=== PATIENT | male | born 1930 | race Caucasian/White ===

== ENCOUNTER 2018-08-13 20:14 | Observation (INO) | payer OTHER ==
--- OUTSIDE RECORDS SUMMARY | 2018-08-13 20:16 | XMS REPORT | Clinical Summary ---
:1930 Author Organization [facility] Address [address] [place] [address] Care Team Providers Name Role Phone Melissa Primary Care Provider Allergies No Known Allergies Medications Not on file Active Problems Not on file Social History Tobacco Use Types Packs/Day Years Used Date Never Assessed Sex Assigned at Date Recorded Not on file Job Start Date Occupation Industry Not on file Not on file Not on file Travel History Travel Start Travel End No recent travel history available. Last Filed Vital Signs Not on file Plan of Treatment Not on file Results Not on fileafter 08/12/2017 Insurance Payer Benefit Plan / Subscriber ID Type Phone Address Group AETNA - MEDICARE AETNA MEDICARE O xxxxxxxx [phone] [address] [place] [address] y (Home) [place] [address]
--- OUTSIDE RECORDS SUMMARY | 2018-08-13 20:17 | XMS REPORT ---
:1930 Author Organization [facility] Address [address] [place] [address] [address] [place] [address] Care Team Providers Name Role Phone BILL ZAIDI Unavailable Unavailable Problems This patient has no known problems. Allergies, Adverse Reactions, Alerts This patient has no known allergies or adverse reactions. Medications This patient has no known medications. Results Test Description Test Time Test Comments Text Results Atomic Results Result Comments URINALYSIS W/ REFLEX URINE CULTURE 2017-06-17 15:25:00 Test Item Value Reference Range Comments COLOR (BEAKER) (test bcch=209) Light Yellow CLARITY (BEAKER) (test mqdh=996) Clear SPECIFIC GRAVITY UA (BEAKER) (test yoyc=703) 1.004 1.001-1.035 PH UA (BEAKER) (test rpwe=243) 7.0 5.0-8.0 PROTEIN UA (BEAKER) (test qeag=431) Negative Negative GLUCOSE UA (BEAKER) (test pwxr=663) Negative Negative KETONES UA (BEAKER) (test ukak=914) Negative Negative BILIRUBIN UA (BEAKER) (test mxez=359) Negative Negative BLOOD UA (BEAKER) (test zsum=805) Moderate Negative NITRITE UA (BEAKER) (test iaay=243) Negative Negative LEUKOCYTE ESTERASE UA (BEAKER) (test mglw=711) Large Negative UROBILINOGEN UA (BEAKER) (test nvxm=300) 0.2 mg/dL 0.2-1.0 RBC UA (BEAKER) (test sshb=929) 16 /HPF WBC UA (BEAKER) (test ltbd=675) 30 /HPF MUCUS (BEAKER) (test golg=9543) Rare SOURCE(BEAKER) (test wqfg=8654)
--- NOTE | 2018-08-13 21:52 | RAD REPORT ---
EXAM DESCRIPTION: RAD - Pelvis - 08/13/2018 9:41 pm CLINICAL HISTORY: fall Trauma, fall, right hip pain COMPARISON: None FINDINGS: AP pelvis and right hip-multiple projections are submitted. Right total hip arthroplasty is noted. Large amount of soft tissue swelling is seen about the right h ip. An acute fracture is not identified.
--- NOTE | 2018-08-13 23:06 | ER ---
Nurse's Notes [facility] Name: Jeremy Joshi Age: 88 yrs Sex: Male : 1930 Arrival Date: 08/13/2018 Time: 20:16 Bed 20 Private MD: Aime Lou C Diagnosis: Large hematoma right hip. S/P Fall Presentation: 08/13 20:17 Presenting complaint: Patient states: About 2 hours ago I tripped down a curb and la1 landed on my right hip, I have had it replaced in the past and it is very swollen and painful. Transition of care: patient was not received from another setting of care. Onset of symptoms was August 13, 2018. Risk Assessment: Do you want to hurt yourself or someone else? Patient reports no desire to harm self or others. Initial Sepsis Screen: Does the patient meet any 2 criteria? No. Patient's initial sepsis screen is negative. Does the patient have a suspected source of infection? No. Patient's initial sepsis screen is negative. Care prior to arrival: None. 20:17 Method Of Arrival: Wheelchair la1 20:17 Acuity: RICHARD 3 la1 20:17 Mechanism of Injury: Fall. 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 - Social history:: Smoking status: Patient/guardian denies using tobacco. - Ebola Screening: : No symptoms or risks identified at this time. Screenin:20 Abuse screen: Denies threats or abuse. Denies injuries from another. Nutritional rr5 screening: No deficits noted. Tuberculosis screening: No symptoms or risk factors identified. 21:20 Fall Risk Fall in past 12 months (25 points). Secondary diagnosis (15 points) impaired rr5 mobility, IV access (20 points). Total Ayers Fall Scale indicates High Risk Score (45 or more points). Fall prevention measures have been instituted. Side Rails Up X 2 Frequent Obs/Assessments Occuring Family Present and informed to notify staff if the need to leave the bedside As available patient and family educated on Fall Prevention Program and Strategies. Primary Survey: 20:20 NO uncontrolled hemorrhage observed. A: The patient is alert. Airway:. rr5 20:20 Breathing/Chest: Respiratory pattern: regular, Respiratory effort: spontaneous, rr5 unlabored. Circulation: Heart tones present. Pulses: palpable right popliteal artery, right posterior tibial artery and right dorsalis pedis artery. Disability Alert. Exposure/Environment: All clothing and personal items were removed. Forensic evidence collection is not deemed to be indicated at this time. Items placed in patient belonging bag. 21:00 Reassessment Airway Airway Patent Breathing/Chest Respiratory pattern Regular rr5 Respiratory effort Spontaneous Unlabored Circulation Pulses Palpable Color [facility] Disability Alert. 21:00 Reassessment Airway Airway Patent Breathing/Chest Respiratory pattern Regular rr5 Respiratory effort Spontaneous Unlabored Circulation Pulses Palpable Color [facility] Disability Alert. Secondary Survey: 20:20 HEENT: No deficits noted. Gastrointestinal: No deficits noted. : No deficits noted. rr5 Musculoskeletal: Swelling present in right hip. Assessment: 20:17 General: Appears in no apparent distress. uncomfortable, Behavior is calm, cooperative, rr5 appropriate for age. 20:17 Pain: Complains of pain in right hip Pain does not radiate. Pain currently is 4 out of rr5 10 on a pain scale. Quality of pain is described as aching, Pain began suddenly, Is intermittent. Neuro: Level of Consciousness is awake, alert, obeys commands, Oriented to person, place, time, situation. Cardiovascular: Capillary refill < 3 seconds Patient's skin is warm and dry. Respiratory: Airway is patent Respiratory effort is even, unlabored, Respiratory pattern is regular, symmetrical. GI: Abdomen is round. : No signs and/or symptoms were reported regarding the genitourinary system. EENT: No signs and/or symptoms were reported regarding the EENT system. Derm: Bruising that is dark purple, on right arm and left arm. Musculoskeletal: Swelling present in right hip. 21:30 Reassessment: Patient appears in no apparent distress at this time. Patient and/or rr5 family updated on plan of care and expected duration. Pain level reassessed. Patient states symptoms have improved. 22:45 Reassessment: Patient appears in no apparent distress at this time. Patient and/or rr5 family updated on plan of care and expected duration. Pain level reassessed. blood extracted. no complaints made. dr. sherman explained the plan of admission. 23:05 Reassessment: dr. ng came, assess and examined the patient. rr5 08/14 00:05 Reassessment: Patient appears in no apparent distress at this time. 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 Patient states symptoms have improved. Vital Signs: 08/13 20:19 BP 139 / 66; Pulse 74; Resp 16; Temp 97.5; Pulse Ox 98% on R/A; Weight 88.9 kg; Height la1 5 ft. 8 in. (172.72 cm); Pain 5/10; 21:00 BP 135 / 65; Pulse 70; Resp 17; Pulse Ox 99% ; rr5 22:00 BP 141 / 71; Pulse 79; Resp 18; Pulse Ox 99% ; rr5 23:00 BP 132 / 62; Pulse 79; Resp 17; Pulse Ox 98% ; rr5 08/14 00:00 BP 137 / 60; Pulse 77; Resp 17; Temp 97.6; Pulse Ox 98% on R/A; rr5 08/13 20:19 Body Mass Index 29.80 (88.90 kg, 172.72 cm) la1 Claudia Coma Score: 08/13 20:20 Eye Response: spontaneous(4). Verbal Response: oriented(5). Motor Response: obeys rr5 commands(6). Total: 15. Trauma Score (Adult): 20:20 Eye Response: spontaneous(1); Verbal Response: oriented(1); Motor Response: obeys rr5 commands(2); Systolic BP: > 89 mm Hg(4); Respiratory Rate: 10 to 29 per min(4); Claudia Score: 15; Trauma Score: 12 ED Course: 20:16 Patient arrived in ED. mr 20:16 Aime Lou MD is Private Physician. mr 20:18 Triage completed. la1 20:19 Arm band placed on right wrist. la1 20:20 Pulse ox on. NIBP on. rr5 20:20 Patient has correct armband on for positive identification. Placed in gown. Bed in low rr5 position. Call light in reach. Side rails up X2. 21:03 Daryn Sherman MD is Attending Physician. pkl 21:27 Raghav Tolentino, RN is Primary Nurse. rr5 21:41 Hip Right 2 View XRAY In Process Unspecified. EDMS 21:41 Pelvis XRAY In Process Unspecified. EDMS 22:00 Patient maintains SpO2 saturation greater than 95% on room air. rr5 22:30 No provider procedures requiring assistance completed. rr5 23:04 Stepan Rogers MD is Hospitalizing Provider. pkl 23:23 CBC with Automated Diff Sent. rr5 23:23 Inserted saline lock: 20 gauge in right forearm, using aseptic technique. Blood rr5 collected. 08/14 00:11 Patient admitted, IV remains in place. intact. rr5 Administered Medications: No medications were administered Output: 08/13 23:30 Urine: 400ml (Voided); Total: 400ml. rr5 Outcome: 23:05 Decision to Hospitalize by Provider. pkl 23:05 Patient's length of stay in the Emergency Department was greater than 2 hours. for rr5 admission. waiting for attending physician approval.Patient's length of stay extended due to 08/14 00:10 Admitted to Tele accompanied by tech, via stretcher, with chart, Report called to rr5 ermelinda Condition: stable Instructed on the need for admit. 00:59 Patient left the ED. rr5 Signatures: Dispatcher [employer] EDDaryn Law MD MD pkl Rivera, Mary mr Franc George, RN RN la1 Raghav Tolentino, RN RN rr5
--- NOTE | 2018-08-13 23:06 | EDPHYS ---
Physician Documentation [facility] Name: Jeremy Joshi Age: 88 yrs Sex: Male : 1930 Arrival Date: 08/13/2018 Time: 20:16 Bed 20 Private MD: Aime Lou C ED Physician Daryn Romeo HPI: 08/13 21:12 This 88 yrs old Male presents to ER via Wheelchair with complaints of Fall pkl Injury. 21:12 The patient or guardian reports deformity, an injury, pain, swelling. sustained from a pkl fall, from a standing position, tripped off a curb. The complaints affect the right hip. Onset: The symptoms/episode began/occurred just prior to arrival, 2 hour(s) ago. Associated signs and symptoms: Loss of consciousness: the patient experienced no loss of consciousness. 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 - Social history:: Smoking status: Patient/guardian denies using tobacco. - Ebola Screening: : No symptoms or risks identified at this time. ROS: 21:12 Eyes: Negative for injury, pain, redness, and discharge, ENT: Negative for injury, pkl pain, and discharge, Neck: Negative for injury, pain, and swelling, Cardiovascular: Negative for chest pain, palpitations, and edema, Respiratory: Negative for shortness of breath, cough, wheezing, and pleuritic chest pain, Abdomen/GI: Negative for abdominal pain, nausea, vomiting, diarrhea, and constipation, Back: Negative for injury and pain, : Negative for injury, bleeding, discharge, and swelling. 21:12 MS/extremity: Positive for injury or acute deformity, pain, swelling, tenderness, of the right hip. 21:12 Skin: Negative for rash. 21:12 Neuro: Negative for altered mental status, loss of consciousness. Exam: 21:12 Head/Face: Normocephalic, atraumatic. Eyes: Pupils equal round and reactive to light, pkl extra-ocular motions intact. Lids and lashes normal. Conjunctiva and sclera are non-icteric and not injected. Cornea within normal limits. Periorbital areas with no swelling, redness, or edema. ENT: Nares patent. No nasal discharge, no septal abnormalities noted. Tympanic membranes are normal and external auditory canals are clear. Oropharynx with no redness, swelling, or masses, exudates, or evidence of obstruction, uvula midline. Mucous membranes moist. Neck: Trachea midline, no thyromegaly or masses palpated, and no cervical lymphadenopathy. Supple, full range of motion without nuchal rigidity, or vertebral point tenderness. No Meningismus. Chest/axilla: Normal chest wall appearance and motion. Nontender with no deformity. No lesions are appreciated. Cardiovascular: Regular rate and rhythm with a normal S1 and S2. No gallops, murmurs, or rubs. Normal PMI, no JVD. No pulse deficits. Respiratory: Lungs have equal breath sounds bilaterally, clear to auscultation and percussion. No rales, rhonchi or wheezes noted. No increased work of breathing, no retractions or nasal flaring. Abdomen/GI: Soft, non-tender, with normal bowel sounds. No distension or tympany. No guarding or rebound. No evidence of tenderness throughout. Back: No spinal tenderness. No costovertebral tenderness. Full range of motion. Skin: Warm, dry with normal turgor. Normal color with no rashes, no lesions, and no evidence of cellulitis. Neuro: Awake and alert, GCS 15, oriented to person, place, time, and situation. Cranial nerves II-XII grossly intact. Motor strength 5/5 in all extremities. Sensory grossly intact. Cerebellar exam normal. Normal gait. 21:12 Musculoskeletal/extremity: Extremities: grossly normal except: noted in the right hip: pain, swelling, tenderness. Vital Signs: 20:19 BP 139 / 66; Pulse 74; Resp 16; Temp 97.5; Pulse Ox 98% on R/A; Weight 88.9 kg; Height la1 5 ft. 8 in. (172.72 cm); Pain 5/10; 21:00 BP 135 / 65; Pulse 70; Resp 17; Pulse Ox 99% ; rr5 22:00 BP 141 / 71; Pulse 79; Resp 18; Pulse Ox 99% ; rr5 23:00 BP 132 / 62; Pulse 79; Resp 17; Pulse Ox 98% ; rr5 08/14 00:00 BP 137 / 60; Pulse 77; Resp 17; Temp 97.6; Pulse Ox 98% on R/A; rr5 08/13 20:19 Body Mass Index 29.80 (88.90 kg, 172.72 cm) la1 Gipsy Coma Score: 08/13 20:20 Eye Response: spontaneous(4). Verbal Response: oriented(5). Motor Response: obeys rr5 commands(6). Total: 15. Trauma Score (Adult): 20:20 Eye Response: spontaneous(1); Verbal Response: oriented(1); Motor Response: obeys rr5 commands(2); Systolic BP: > 89 mm Hg(4); Respiratory Rate: 10 to 29 per min(4); Gipsy Score: 15; Trauma Score: 12 MDM: 21:03 Patient medically screened. pkl 23:04 Data reviewed: vital signs, nurses notes, lab test result(s), radiologic studies, plain pkl films. 08/13 22:45 Order name: CBC with Automated Diff; Complete Time: 02:27 EDHI 08/13 21:10 Order name: Hip Right 2 View XRAY pkl 08/13 21:10 Order name: Pelvis XRAY; Complete Time: 22:50 pkl Administered Medications: No medications were administered Disposition: 08/13/18 23:05 Hospitalization ordered by Stepan Rogers for Observation. Preliminary diagnosis is Large hematoma right hip. S/P Fall. - Bed requested for Telemetry/MedSurg (observation). - Status is Observation. rr5 - Condition is Stable. - Problem is new. - Symptoms are unchanged. UTI on Admission? No Signatures: Dispatcher [employer] EDHI Daryn Romeo MD MD pkl Franc George RN RN la1 Thalia Davila RN RN Raghav Tolentino RN RN rr5 Corrections: (The following items were deleted from the chart) 23:51 23:05 Hospitalization Ordered by Stepan Rogers MD for Observation. Preliminary cg diagnosis is Large hematoma right hip. S/P Fall. Bed requested for Telemetry/MedSurg (observation). Status is Observation. Condition is Stable. Problem is new. Symptoms are unchanged. UTI on Admission? No. pkl 08/14 00:59 08/13 23:51 08/13/2018 23:05 Hospitalization Ordered by Stepan Rogers MD for rr5 Observation. Preliminary diagnosis is Large hematoma right hip. S/P Fall. Bed requested for Telemetry/MedSurg (observation). Status is Observation. Condition is Stable. Problem is new. Symptoms are unchanged. UTI on Admission? No. cg
[2018-08-13 23:29] LABS: Absolute Lymphocytes (CBC) 1.6 K/uL (0.7-4.9); Absolute Neutrophil 6.5 K/uL (1.8-8.0); Basophils % 0.3 % (0-1.3); Eosinophils % 1.6 % (0-4.4); Hematocrit 36.6 % (39.6-49.0); Lymphocytes % 16.9 % (15.3-44.8); Monocytes % 11.2 % (3.3-12.3); RBC Red Blood Cell Count 3.83 M/uL (4.33-5.43)
--- NOTE | 2018-08-14 00:02 | P.HP ---
Certification for Inpatient Patient admitted to: Observation With expected LOS: <2 Midnights Practitioner: I am a practitioner with admitting privileges, knowledge of patient current condition, hospital course, and medical plan of care. Services: Services provided to patient in accordance with Admission requirements found in Title 42 Section 412.3 of the Code of Federal Regulations Patient History Date of Service: 08/13/18 Reason for admission: right hip hematoma History of Present Illness: Mr Joshi is an 88 years old male with history of CAD, right hip replacement, who fell this afternoon, over his right hip. immediately, he start feeling pain , and noticed progressive swelling in the area. He is taking baby aspirin but not anticoagulants. In ER XR was remarkable for large amount of soft tissue swelling, no fractures or dislocation. Hgb 12.3. He has significant swelling area on his right hip. The patient denied numbness or tingling in his distal lower extremity. Allergies No Known Aller Allergy (Uncoded 04/26/17 17:32) Unknown Home medications list reviewed: Yes - Past Medical/Surgical History -: CAD -: asbestosis -: osteoporosis -: Right hip arthroscopy -: CABG -: appex - Family History Family History: Reviewed- Non-Contributory - Social History Alcohol use: No CD- Drugs: No Place of Residence: Home Review of Systems 10-point ROS is otherwise unremarkable Physical Examination - Physical Exam General: Alert, In no apparent distress HEENT: Atraumatic, PERRLA, Mucous membr. moist/pink, EOMI, Sclerae nonicteric Neck: Supple, 2+ carotid pulse no bruit, No LAD, Without JVD or thyroid abnormality Respiratory: Clear to auscultation bilaterally, Normal air movement Cardiovascular: Regular rate/rhythm, Normal S1 S2 Gastrointestinal: Normal bowel sounds, No tenderness Musculoskeletal: Swelling (right hip), Tenderness (right hip) Integumentary: No rashes Neurological: Normal speech, Normal strength at 5/5 x4 extr, Normal tone, Normal affect Lymphatics: No axilla or inguinal lymphadenopathy - Studies Laboratory Data (last 24 hrs) 08/13/18 23:00: WBC 9.3, Hgb 12.3 L, Hct 36.6 L, Plt Count 170 Assessment and Plan - Problems (Diagnosis) (1) Hip hematoma, right Current Visit: Yes Status: Acute Qualifiers: Encounter type: initial encounter Qualified Code(s): S70.01XA - Contusion of right hip, initial encounter (2) CAD (coronary artery disease) Current Visit: Yes Status: Acute Qualifiers: Coronary Disease-Associated Artery/Lesion type: bypass graft [place] vs. transplanted heart: [place] heart Associated angina: without angina Qualified Code(s): I25.810 - Atherosclerosis of coronary artery bypass graft(s) without angina pectoris - Plan The patient will be admitted to the hospital under observation to evaluate progress of hematoma size. Will check HH regularly, consult Dr Sanchez for evaluation and recommendations. - Advance Directives Does patient have a Living Will: No Does patient have a Durable POA for Healthcare: No - Code Status/Comfort Care Code Status Assessed: Yes Code Status: Full Code
[2018-08-14] MEDS ORDERED: ONDANSETRON 4 MG/2 ML VIAL IV PRN (00:51)
[2018-08-14] MEDS ORDERED: TRAMADOL HCL 50 MG TAB PO PRN (00:51)
[2018-08-14] MEDS ORDERED: NA CHLORIDE 0.9% 1,000 ML IV SCH (00:51)
[2018-08-14] MEDS ORDERED: ALBUTEROL 2.5 MG/3 ML NEB SOL ONE (01:11)
[2018-08-14] MEDS ORDERED: FAMOTIDINE 20 MG TAB ONE (01:12)
[2018-08-14] MEDS ORDERED: predniSONE 20 MG TAB ONE (01:12)
[2018-08-14 03:58] LABS: Absolute Lymphocytes (CBC) 1.6 K/uL (0.7-4.9); Absolute Monocytes 0.8 K/uL (0.1-1.3); Absolute Neutrophil 3.8 K/uL (1.8-8.0); Basophils % 0.6 % (0-1.3); Eosinophils % 2.2 % (0-4.4); Hematocrit 33.2 % (39.6-49.0); Lymphocytes % 24.8 % (15.3-44.8); Monocytes % 13.2 % (3.3-12.3); RBC Red Blood Cell Count 3.48 M/uL (4.33-5.43)
[2018-08-14 04:15] LABS: BUN Blood Urea Nitrogen 17 mg/dL (7-18); Bicarbonate 32 mmol/L (21-32); Glucose Level 108 mg/dL (74-106); Potassium 4.2 mmol/L (3.5-5.1); Sodium Level 138 mmol/L (136-145)
[2018-08-14 04:39] LABS: Urine Appearance CLEAR; Urine Bilirubin NEGATIVE (NEG); Urine Blood NEGATIVE (NEG); Urine Color YELLOW; Urine Glucose NEGATIVE (NEG); Urine Protein NEGATIVE (NEG); Urine Specific Gravity 1.015 (1.005-1.030); Urine Urobilinogen 0.2 mg/dL (0.2-1.0)
[2018-08-14 04:58] LABS: Urine Microscopic Reflex ORDER UMIC
[2018-08-14 05:05] LABS: Urine Bacteria LOADED /HPF (NONE SEEN); Urine Culture Reflex Order REFLEXED; Urine RBC NONE SEEN /HPF (NONE SEEN)
[2018-08-14] MEDS ORDERED: PNEUMOCOCCAL VACCINE 0.5 ML IMVAC ONE (08:00)
[2018-08-14] MEDS ORDERED: INFLUENZA VACCINE (for 3y+) 0.5 ML DOSE IMVAC ONE (08:00)
[2018-08-14] MEDS ORDERED: HOME MED 1 EA UNK (Linaclotide [Linzess] 1 CAP) PO PRN (10:08)
--- NOTE | 2018-08-14 14:15 | P.SSS ---
Patient History Date of Service: 08/14/18 Reason for admission: right hip hematoma History of Present Illness: Mr Joshi is an 88 years old male with history of CAD, right hip replacement, who fell this afternoon, over his right hip. immediately, he start feeling pain , and noticed progressive swelling in the area. He is taking baby aspirin but not anticoagulants. In ER XR was remarkable for large amount of soft tissue swelling, no fractures or dislocation. Hgb 12.3. He has significant swelling area on his right hip. The patient denied numbness or tingling in his distal lower extremity. Allergies No Known Drug Allergies Allergy (Verified 08/14/18 02:35) Unknown Home Medications: Aspirin Chewable [Aspirin Chewable*] 81 mg PO DAILY 08/14/18 Atorvastatin Calcium [Lipitor*] 20 mg PO BEDTIME 08/14/18 Diltiazem HCl [Cartia Xt] 120 mg PO BID 08/14/18 Docusate [Colace Cap*] 100 mg PO DAILY 08/14/18 Furosemide [Lasix*] 40 mg PO DAILY 08/14/18 Ipratropium/Albuterol Sulfate [Combivent Respimat 20-100 Mcg] 1 puff IH QID PRN 08/14/18 L. Rhamnosus GG/Inulin [Culturelle Probiotics Capsule] 1 each PO DAILY 08/14/18 Linaclotide [Linzess] 1 cap PO DAILY PRN 08/14/18 Melatonin/Pyridoxine [Melatonin 5 mg Tablet] 1 each PO BEDTIME 08/14/18 Polyethylene Glycol 3350 [Miralax] 17 gm PO DAILY PRN 08/14/18 Vit D3/Folic Acid/B2/B6/B12 [Folgard Tablet] 1 each PO DAILY 08/14/18 traMADol HCL [Ultram*] 50 mg PO Q6H PRN #15 tab 08/14/18 - Past Medical/Surgical History Has patient received pneumonia vaccine in the past: No Diabetic: No -: CAD -: asbestosis -: osteoporosis -: Right hip arthroscopy -: CABG -: appex - Family History Family History: Reviewed- Non-Contributory - Family History Mother -: Heart disease Brother -: Heart disease, Diabetes - Social History Smoking Status: Former smoker Alcohol use: No CD- Drugs: No Caffeine use: Yes Place of Residence: Home Review of Systems 10-point ROS is otherwise unremarkable Physical Examination - Vital Signs Temperature: 97.3 F Blood Pressure: 128/56 Pulse: 81 Respirations: 20 Pulse Ox (%): 91 - Physical Exam General: Alert, In no apparent distress HEENT: Atraumatic, PERRLA, Mucous membr. moist/pink, EOMI, Sclerae nonicteric Neck: Supple, 2+ carotid pulse no bruit, No LAD, Without JVD or thyroid abnormality Respiratory: Clear to auscultation bilaterally, Normal air movement Cardiovascular: Regular rate/rhythm, Normal S1 S2 Gastrointestinal: Normal bowel sounds, No tenderness Musculoskeletal: No tenderness Integumentary: No rashes Neurological: Normal gait, Normal speech, Normal strength at 5/5 x4 extr, Normal tone, Normal affect Lymphatics: No axilla or inguinal lymphadenopathy - Studies Laboratory Data (last 24 hrs) 08/13/18 23:00: WBC 9.3, Hgb 12.3 L, Hct 36.6 L, Plt Count 170 Treatment Summary: Overall during the hospital stay patient remained stable Patient was initially admitted to the hospital for right hip hematoma after having a fall at the old. From surgery was consulted who recommended that patient can be observed for 24 hr. Patient was observed here in the hospital for 24 hr and was discharged home under stable condition. Patient is to continue using the Keith wrap around the affected area. Patient was asked to follow up with the primary care provider in 1-2 days post discharge and thus he was discharged home under stable condition - Disposition Disposition: ROUTINE DISCHARGE Condition: GOOD Diet: Regular Activity: Ad purvi
--- NOTE | 2018-08-14 18:10 | CON ---
Date of Consultation: 08/14/2018 Brief History Of Present Illness: The patient is an 88-year-old male, who has a history of coronary artery disease and a right hip replacement many years ago, who fell earlier yesterday over the area of the right hip. Immediately, he started feeling pain and so noticed progressive swelling in the area and it had gotten somewhat bruised in appearance. He has been taking an 81 mg aspirin, b ut no other anticoagulation. He was seen in the ER with the significant amount of swelling and pain to this area. Ultimately, his hemoglobin was 12.3 on check and he had no additional distal complaint s with respect to numbness, tingling, or any sensory or motor deficits in that same said extremity. Past Medical History: Coronary artery disease, asbestosis, osteoporosis of right hip. Past Surgical History: Right hip arthroscopy, CABG, and an appendectomy. Family History: Reviewed and noncontributory. Social History: He denies smoking, alcohol, recreational drug use. Allergies: NO KNOWN DRUG ALLERGIES. Home Medications: Include aspirin 81 mg, atorvastatin, diltiazem, Colace, Lasix, Combivent, __ probiotic, Linzess, melatonin, MiraLax, Folgard, and Ultram. Review of Systems: A 10-point review of systems other than HPI, denies. Physical Examination: Vital Signs: At the time of my examination, his BMI is 29.8. Blood pressure 128/56, respiratory rat e is 20, pulse is 81, temperature 97.3. General: He is awake, alert, and oriented. Psychiatric: He is appropriately conversive. HEENT: Normocephalic. Sclerae icteric. Mucous membranes are moist. Oropharynx clear. Neck: Supple. No JVD. Chest: Normal expansion and excursion. Cardiovascular: Regular rate and rhythm. Midline sternotomy scar. Pulmonary: Clear to auscultation bilaterally. Abdomen: Soft, nontender, and nondistended. Extremities: Focused examination of the right lower extremity shows a large hematoma in the right hi p area, but it appears stable at this time. It has minimal tenderness to the area. There is no skin compromise or elevated cellulitis. There is some bruising and ecchymotic changes to the area. The remainder of the extremity examination shows no sensorineural deficits. Skin: Warm and dry, otherwise. Laboratory Data: Reveals a white blood count of 6.3, hemoglobin is 11.3 down from 12.3 on admission, his hematocrit is 33.2, his platelets are 160, neutrophils are normal at 59%. His sodium 138, potas sium 4.2, chloride 102, carbon dioxide 32, BUN 17, creatinine 0.6, glucose is 108, calcium 8.2. His UA showed positive nitrites, trace leukocyte esterase, 5-10 white blood cells, and loaded bacteria. He had imaging performed which included a pelvis x-ray, which was officially read as right total hip arthroscopy noted, large amount of soft tissue swelling seen about the right hip. An acute fracture is not identified. Assessment And Plan: This is an 88-year-old male who is status post fall with a likely hematoma of t he right hip area. It appears stable at this time. His hemoglobin has not significantly dropped sin ce admission and with the IV fluids he has received this is likely dilutional. As such, I recommend ice packs and wrapping with a loose Keith bandage pelvic binder and continued outpatient followup. I h jaden explained the risks, benefits, and alternatives of the above stated plan. The patient agrees to proceed as indicated. Hold all anticoagulation for 7 days and then resume his 81 mg aspirin at that point. He can follow up with me in the clinic as an outpatient. We have discussed this as well. ERIK/[email or web address] Voice ID: [id number] Report ID: [id number]
[2018-08-14] MEDS ORDERED: DILTIAZEM HCL 120 MG PO SCH (21:00)
[2018-08-14] MEDS ORDERED: HOME MED 1 EA UNK (Melatonin/Pyridoxine [Melatonin 5 Mg Tablet] 1 EACH) PO SCH (21:00)
[2018-08-14] MEDS ORDERED: ATORVASTATIN 20 MG TAB PO SCH (21:00)
[2018-08-15] MEDS ORDERED: FUROSEMIDE 40 MG TABLET PO SCH (09:00)
[2018-08-15] MEDS ORDERED: POLYETHYL GLY 3350 17 GM/DOSE PO PRN (09:00)
[2018-08-15] MEDS ORDERED: DOCUSATE NA 100 MG CAP PO SCH (09:00)
--- NOTE | 2018-08-16 10:25 | RAD REPORT ---
EXAM DESCRIPTION: RAD - Hip Right 2 View - 08/13/2018 9:41 pm CLINICAL HISTORY: Fall Trauma, fall, right hip pain COMPARISON: None FINDINGS: AP pelvis and right hip-multiple projections are submitted. Right total hip arthroplasty is noted. Large amount of soft tissue swelling is seen about the right h ip. An acute fracture is not identified.
== END 2018-08-14 14:11 | disposition home or self-care (01) ==
LOC: ER 20:14 → ERHOLD 23:38 → 4TH 08-14 00:23
PROVIDERS: ADMIT Internal Medicine; ATTEND Internal Medicine
DX: S70.01XA Contusion of right hip, initial encounter (principal); I25.10 Atherosclerotic heart disease of native coronary artery without angina pectoris; W18.30XA Fall on same level, unspecified, initial encounter; Y92.009 Unspecified place in unspecified non-institutional (private) residence as the place of occurrence of the external cause; Z95.1 Presence of aortocoronary bypass graft; Z79.82 Long term (current) use of aspirin
CPT/HCPCS: 36415; 72170; 73502; 80048; 85025 ×2; 87077; 87086; 87088; 87186; 99285; G0378 ×2; J7030; 81003; 81015; J7512